=== PATIENT | female | born 1980 ===

== ENCOUNTER 2016-12-03 07:56 | Inpatient (IN) ==
[2016-12-03] MEDS ORDERED: ceFAZolin 2,000 MG in PREMIX 1 EACH IV ONE (08:08)
[2016-12-03] MEDS ORDERED: FAMOTIDINE 20 MG/2 ML VIAL IV ONE (08:11)
[2016-12-03] MEDS ORDERED: CITRIC ACID/SODIUM CITRATE 30 ML UDCUP PO ONE (08:11)
[2016-12-03] MEDS ORDERED: LACTATED RINGERS 1,000 ML IV ONE (08:11)
[2016-12-03] MEDS ORDERED: LACTATED RINGERS 500 ML IV ONE (08:11)
[2016-12-03] MEDS ORDERED: OXYTOCIN 30 UNIT in DEXTROSE 5% LACTATED RINGERS 1,000 ML IV ONE (08:12)
[2016-12-03] MEDS ORDERED: OXYTOCIN 10 UNIT/ML VIAL IM ONE (08:13)
[2016-12-03] MEDS ORDERED: OXYTOCIN/LR 30 UNIT/1,000 ML BAG IV ONE (08:18)
[2016-12-03] MEDS ORDERED: OXYTOCIN 10 UNIT/ML VIAL ONE (08:26)
[2016-12-03] MEDS ORDERED: OXYTOCIN/LR 20 UNIT/1,000 ML BAG IV ONE ×2 (08:26→10:39)
[2016-12-03] MEDS ORDERED: LACTATED RINGERS 1,000 ML IV SCH (08:30)
[2016-12-03 08:32] LABS: Basophils % 0.3 % (0.0-0.8); Eosinophils # 0.1 10*3/uL (0.0-0.87); Eosinophils % 1.8 % (0.00-10.9); Hematocrit 36.4 VOL% (35.7-47.0); Hemoglobin 12.1 GM/DL (12.0-16.0); Immature Granulocytes % 0.3 %; Immature Granulocytes Absolute 0.02 #; Lymphocytes # 1.8 10*3/uL (1.4-4.0); Lymphocytes % 24.9 % (21.3-54.2); Mean Corpuscular HGB Conc 33.2 GM/DL (32-36); Mean Corpuscular Hemoglobin 31 PG (27-34); Mean Corpuscular Volume 94.5 FL (87-102); Mean Platelet Volume 11.5 FL (9.6-12.0); Monocytes # 0.5 10*3/uL (0.11-0.8); Monocytes % 6.3 % (1.7-12.7); Neutrophils # 4.9 10*3/uL (1.4-7.4); Neutrophils % 66.4 % (38.7-73.9); Platelet Count 146 T/CUMM (130-400); Red Blood Count 3.85 MC/CUMM (3.8-5.5); Red Cell Distribution Width 14.4 % (9.3-17.3); White Blood Count 7.3 T/CUMM (4-12)
[2016-12-03 09:07] LABS: Alanine Aminotransferase 17 U/L (13-56); Albumin 2.7 G/DL (3.4-5.0); Alkaline Phosphatase 165 U/L (45-117); Aspartate Amino Transferase 19 U/L (0-37); Bilirubin,Total < 0.39 MG/DL (0.2-1.0); Blood Urea Nitrogen 7 MG/DL (7-18); Calcium 8.7 MG/DL (8.5-10.1); Glucose 75 MG/DL (74-106); Osmolality,Calculated 279.1 MOS/KG (273-304); Potassium 3.9 MMOL/L (3.5-5.1); Sodium 142 MMOL/L (136-145)
[2016-12-03] MEDS ORDERED: ONDANSETRON 4 MG/2 ML VIAL ONE (09:41)
[2016-12-03] MEDS ORDERED: PHENYLEPHRINE 1 MG/10 ML SYRINGE IV ONE (09:41)
--- NOTE | 2016-12-03 10:36 | OB/GYN History & Physical ---
History of Present Illness Chief complaint: scheduled section, elective sterilization History of present illness: Ms. Gonzalez is a 36 year old female 6 para 4 EDC is 12/10/2016 presents for scheduled repeat section and bilateral tubal ligation. Risks and benefits thoroughly discussed she is in full agreement. Fetus is very active, no active leaking of fluid nor contractions. Pelvic exam was 1 cm thick and high. We'll plan on repeat section bilateral tubal ligation. Home Medications Medication Instructions Recorded Confirmed Type Ferrous Sulfate Tab [Feosol 325 tablet PO BID 10/15/16 11/19/16 History Original Tab] Multivitamin () [ 1 tablet PO DAILY 10/15/16 11/19/16 History Vitamin] Allergies Allergy/AdvReac Type Severity Reaction Status Date / Time No Known Allergies Allergy Verified 12/03/16 08:08 Medical,Surgical,& Family Hx - Surgical History Abdominal Surgeries: Patient denies: Abdominal Surgery Reproductive Surgeries: Surgical HX of;: Section (X1) - Family History Family History: Reports;: Family Hypertension (MATERNAL AUNT) Denies;: Family Anesthesia Reaction, Family Cancer, Family Diabetes, Family Heart Disease, Family Hematology, Family Psychiatric Problems, Family Stroke, Additional Family History - Social History Smoking Status: Never smoker Exam ECHOCARDIOGRAPH TECHNICIAN - Constitutional Vitals: Vital Signs Temp Pulse Resp BP Pulse Ox 12/03/16 08:14 97.1 F L 63 20 121/77 97 General appearance: no acute distress - Head Head exam: Present: normal inspection - Eye Eye exam: Present: EOMI Pupils: Present: JEFFREY - ENT ENT exam: Present: normal exam - Neck Neck exam: Present: normal inspection - Respiratory Respiratory exam: Present: clear to auscultation bilaterally - Breast Breasts: as per HPI Menstruation: as per HPI - Cardiovascular Cardiovascular exam: Present: regular rate and rhythm - GI/Abdominal GI/Abdominal exam: Present: normal bowel sounds, other (positive heart tones) - Extremities Exam Extremities exam: Present: normal inspection - Back Exam Back exam: Present: normal inspection - Neurological Exam Neurological exam: Present: alert - Psychiatric Psychiatric exam: Present: normal affect - Skin Skin exam: Present: normal color Assessment and Plan (1) Status post repeat low transverse section Status: Acute Assessment and plan: Repeat section bilateral tubal ligation risks benefits thoroughly discussed she is in full agreement Current Visit: Yes Results - Labs CBC & BMP: 12/03/16 08:26 12/03/16 08:26
--- NOTE | 2016-12-03 10:38 | Operative Note ---
Date of procedure: 12/03/16 Procedure: Preoperative diagnosis: Term 39 weeks, elective sterilization Postoperative diagnosis: Same Anesthesia:[] Regional anesthesia Estimated blood loss: []300 Surgeon: Dr. Ponce Findings: []Female , 8 lbs. 2 oz., date of was at 1005 a.m., Apgars were 9 at 1 minute and 9 at 5 minutes Complications: None Procedure: Low transverse section and bilateral tubal ligation The patient was taken to the operating suite heart tones were obtained prior to and after regional anesthesia was obtained. She was placed in supine position her abdomen was prepped and draped in usual manner for major abdominal surgery. Through an abdominal incision the skin, subcutaneous, fascial layer and peritoneal the abdomen was entered. The bladder flap was created and a low transverse incision was made.. Fluid was clear and normal amount X, Apgars, the placenta was delivered and sent to lab for further evaluation. Injected with intrauterine Pitocin. The first layer of the uterus was closed with #1 Vicryl in a continuous locking manner. Close to imbricate the first layer with #1 Vicryl. The peritoneum was approximated with #2-0 Vicryl.[ A Hudson clamp was used to grab the fallopian tube. The mesosalpinx was perforated. The proximal distal end of the tube was ligated. Segment in between was excised and cauterized.] All the last sponges and instruments were accounted for 2.) # 2-0 Vicryl. Fascia was approximated with #0-0 Maxon.. The skin was approximated with tigre. She tolerated procedure well and was taken to recovery room in stable condition. Surgeon / Physician: Anil Ponce Results - Labs CBC & BMP: 12/03/16 08:26 12/03/16 08:26 Discharge Plan - Discharge Medications No Action Multivitamin () [ Vitamin] 1 tablet PO DAILY Ferrous Sulfate Tab [Feosol Original Tab] 325 tablet PO BID - Follow Up or Referral - Forms/Instructions
[2016-12-03] MEDS ORDERED: ONDANSETRON 4 MG/2 ML VIAL IV PRN (10:39)
[2016-12-03] MEDS ORDERED: ACETAMINOPHEN 325 MG TABLET PO PRN (10:39)
[2016-12-03] MEDS ORDERED: RHO(D) IMMUNE GLOBULIN 300 MCG SYRINGE IM ONE (10:39)
[2016-12-03] MEDS ORDERED: IBUPROFEN 800 MG TABLET PO PRN (10:39)
[2016-12-03] MEDS ORDERED: fentaNYL 100 MCG/2 ML VIAL ONE (10:42)
[2016-12-03] MEDS ORDERED: MORPHINE 10 MG/10 ML VIAL ONE ×2 (10:43→10:47)
[2016-12-03 10:55] LABS: Cord Arterial Blood HCO3 24.8 MMOL/L
[2016-12-03 10:57] LABS: Cord Venous Blood HCO3 22.1 MMOL/L; Cord Venous Blood PCO2 39.5 MMHG; Cord Venous Blood PO2 42.6 MMHG
[2016-12-03 11:00] LABS: Apearance,Urine CLEAR (Clear); Bilirubin,Urine Negative (Negative); Blood, Urine Negative (Negative); Glucose,Urine (UA) Negative (Negative); Ketones,Urine Negative (Negative); Mucus,Urine Occasional /LPF (Occasional); Nitrite,Urine Negative (Negative); Protein,Urine Negative; RBC,Urine <1 /HPF (0-4); Squamous Epithelial Cell,Urine Occasional /HPF (0-10); Urine Color Straw (Yellow); Urine Specific Gravity 1.004 (1.001-1.035); Urine Urobilinogen < 2.0 EU/DL (0.2-1.0); WBC,Urine <1 /HPF (0-6)
[2016-12-03] MEDS ORDERED: PROMETHAZINE 25 MG/1 ML VIAL IM ONE (11:34)
[2016-12-03] MEDS: LACTATED RINGERS 1,000 ML IV SCH (22:00)
[2016-12-04] MEDS: LACTATED RINGERS 1,000 ML IV SCH (06:00)
[2016-12-04] MEDS: DOCUSATE SODIUM 100 MG CAPSULE PO SCH ×3 (06:10→19:59)
[2016-12-04 06:44] LABS: Basophils % 0.2 % (0.0-0.8); Eosinophils # 0.1 10*3/uL (0.0-0.87); Eosinophils % 0.4 % (0.00-10.9); Hematocrit 34.6 VOL% (35.7-47.0); Hemoglobin 11.6 GM/DL (12.0-16.0); Immature Granulocytes % 0.3 %; Immature Granulocytes Absolute 0.03 #; Lymphocytes # 1.6 10*3/uL (1.4-4.0); Lymphocytes % 13.8 % (21.3-54.2); Mean Corpuscular HGB Conc 33.5 GM/DL (32-36); Mean Corpuscular Hemoglobin 31 PG (27-34); Mean Corpuscular Volume 92.3 FL (87-102); Mean Platelet Volume 11.5 FL (9.6-12.0); Monocytes # 0.7 10*3/uL (0.11-0.8); Monocytes % 6.1 % (1.7-12.7); Neutrophils # 9.4 10*3/uL (1.4-7.4); Neutrophils % 79.2 % (38.7-73.9); Platelet Count 142 T/CUMM (130-400); Red Blood Count 3.75 MC/CUMM (3.8-5.5); Red Cell Distribution Width 14.6 % (9.3-17.3); White Blood Count 11.9 T/CUMM (4-12)
[2016-12-04] MEDS: MULTIVITAMIN (PRENATAL) TABLET PO SCH (08:21)
--- NOTE | 2016-12-04 09:34 | Progress Note ---
Assessment and Plan (1) Status post repeat low transverse section Status: Acute Assessment and plan: Repeat section bilateral tubal ligation risks benefits thoroughly discussed she is in full agreement Current Visit: Yes Family Medicine PN Sub Interval history: Status post section, postop day #1 Without any major complaints Voiding well, passing gas, pain is appropriately be managed. Lungs are clear, cardiac exam benign, incision sites intact Extremities a well within normal limits and neurologically grossly intact Assessment plan discharge in the a.m. follow-up in our office in 2 weeks. Exam (Progress Note) - Constitutional Vitals: Period Temp Pulse Resp BP Sys/Geronimo Pulse Ox Last 24 Hr 97 F-98.9 F 50-74 16-22 105-119/55-76 95-99 Results - Labs CBC & BMP: 12/04/16 06:32 12/03/16 08:26 Quality Measures - VTE Contraindication to Pharmacological VTE Prophylaxis: Clinical assessment deems Pt at low risk, no prophalaxis needed
[2016-12-04] MEDS: SIMETHICONE CHEW 80 MG TABLET PO PRN (13:15)
[2016-12-04] MEDS: MAGNESIUM HYDROXIDE SUSP 30 ML UDCUP PO PRN ×2 (13:15→20:26)
[2016-12-05 08:00] VITALS: BP 115/71
[2016-12-05] MEDS: MAGNESIUM HYDROXIDE SUSP 30 ML UDCUP PO PRN (09:12)
[2016-12-05] MEDS: SIMETHICONE CHEW 80 MG TABLET PO PRN (09:12)
[2016-12-05] MEDS: DOCUSATE SODIUM 100 MG CAPSULE PO SCH (09:12)
[2016-12-05] MEDS: MULTIVITAMIN (PRENATAL) TABLET PO SCH (09:12)
[2016-12-05] MEDS ORDERED: DIPH/TET/ACEL PERT BOOSTER VACCINE 0.5 ML VIAL IM ONE (09:28)
--- NOTE | 2016-12-05 09:44 | Discharge Summary ---
Hospital Course - Hospital Course Hospital Course: Ms. Gonzalez is a 36-year-old female who presented to the labor department for elective repeat section due to previous section. section was performed and the patient delivered a viable infant with no complications. She has followed a normal postoperative course and she is doing well. Bowel sounds are positive. Her incision is well approximated without signs of infection. She is voiding without difficulty. Her bleeding is minimal with no odor. There is no pain in her calves. She is ambulating without difficulty. Her pain level is minimal. She is bonding well with her infant. She will be discharged to home with prescriptions for pain and a follow -up appointment in our office. Specialty Discharge - Follow Up or Referrals Follow up with: Anil Ponce MD [Physician] - 2 Weeks () Discharge Plan - Discharge Data Disposition: Disch To Home/Self Care Condition at Discharge: Stable Discharge Diet: advance to your usual diet, regular diet Activity: no lifting, no prolonged standing Hygiene: may shower Weight Bearing at Discharge: partial weight bearing Driving: not until seen by doctor Contact your physician if you experience:: fever over 101, pain uncontrolled by pain medications - Discharge Medications New HYDROcodone/ACETAMIN 5-325 [[place]agh 5-325] 2 tablet PO Q6H PRN #30 tablet PRN Reason: Pain Severe (8-10) Ibuprofen Tab [Motrin Tab] 800 mg PO Q8H PRN #30 tablet PRN Reason: Pain Severe (8-10) Continue Ferrous Sulfate Tab [Feosol Original Tab] 325 tablet PO BID No Action Multivitamin () [ Vitamin] 1 tablet PO DAILY - Follow Up or Referral - Forms/Instructions Instructions: Section (DC), Depression (GEN), Perineal Care (DC), Bleeding (DC) Exam - Constitutional Vitals: Period Temp Pulse Resp BP Sys/Geronimo Pulse Ox Last 24 Hr 97.6 F-98.5 F 66-87 18-20 110-156/68-79 96-99 General appearance: no acute distress - Respiratory Respiratory exam: Present: clear to auscultation bilaterally - Cardiovascular Cardiovascular exam: Present: regular rate and rhythm - GI/Abdominal GI/Abdominal exam: Present: normal bowel sounds, soft - Extremities Exam Extremities exam: Present: normal inspection - Neurological Exam Neurological exam: Present: alert, oriented X3 - Psychiatric Psychiatric exam: Present: normal affect, normal mood - Skin Skin exam: Present: normal color, warm DS: Provider Date of admission: 12/03/16 07:56 Primary care physician: Deborah Rodríguez MD Attending physician on admission: Anil Ponce MD Consults: 12/03/16 08:08 Consult to Anesthesiology [CONS] Routine Consulting Provider: Reason for Anesthesiology: Pre-op Clearance 12/03/16 10:39 Consult to Channel Marketing Program Manager [CONS] Routine Consult Channel Marketing Program Manager: Breast Feeding Discharging clinician: Lara Gupta CNM Expected date of discharge: 12/05/16
--- NOTE | 2016-12-07 12:28 | Pathology Report from [facility] ---
ACCESSION # : [id number] PATIENT NAME : Piotr Bledsoe ORDERING DR : CARLOS URBAN MD CLINICAL HX: IUP 39 weeks, desires sterilization POST-OP DX: Same SPECIMEN INFO: #1 Segment of left fallopian tube #2 Segment of right fallopian tube GROSS DESCRIPTION: The specimen is received in formalin labeled with the patient 's name Piotr Bledsoe in 2 parts. The first labeled #1 "SEGMENT L FALLOPIAN TUBE" is a 2.8 x 0.5 cm unfibmriated fallopian tube segment. A signs and displays sales representative section is submitted in cassette #1.#2 "R FALLOPIAN TUBE SEGMENT" is a 3.3 x 0.5 cm unfibmriated fallopian tube segment. A signs and displays sales representative section is submitted in cassette #2. DIAGNOSIS FOR PIOTR BLEDSOE: #1 Completely transected segment of fallopian tube, left.#2 Completely transected segment of fallopian tube, right. SERVICE DATE: 12/03/2016 REPORT DATE: 12/04/2016 PATHOLOGIST: Kristen Roldan
== END 2016-12-05 14:06 | disposition home or self-care (01) | DRG 766 ==
LOC: N.LD 07:56 → N.OB 13:50
PROVIDERS: ADMIT Obstetrics & Gynecology; ATTEND Obstetrics & Gynecology